=== PATIENT | female | born 1945 | race Caucasian/White ===

== ENCOUNTER 2016-11-24 20:16 | Inpatient (IN) | payer MEDICARE, OTHER ==
--- NOTE | ~2016-11-24 | HP ---
History And Physical [id number] [place]. [address] NAME: SANTINO DE LOS SANTOS : 43 STATUS : ADM IN [facility]#: [id number] AGE: 71 ADM/REG DATE : 11/24/16 MR#: [id number] REPORT SERV DATE: 11/25/16 DICTATED BY: RODRIGO CHERRY DATE: 11/25/16 REPORT STATUS : Draft TRANSCRIBED BY: CRISYT DATE: 11/25/16 DATE OF ADMISSION: 11/24/2016 REASON FOR ADMISSION: Pericardial effusion with tamponade. HISTORY OF PRESENT ILLNESS: History and physical was obtained through careful review of past medical records. The patient is currently intubated, so history and review of systems is difficult to obtain. This is a 71-year-old female, who has a history of mitral regurgitation status post mitral clip repair at [place] couple of years ago. She also has a history of aortic regurgitation status post aortic valve replacement and tricuspid valve replacement by Dr. Barney in 2012. Other medical history includes hypertension, hyperlipidemia, hypothyroidism, chronic atrial fibrillation, on Eliquis and congestive heart failure. She also has a history of anxiety, depression, restless legs syndrome, iron deficiency anemia, and tobacco abuse. She is followed by Dr. Cruz in [place]. She has been having worsening shortness of breath for several weeks and was brought in for a left and right heart catheterization yesterday. She was found to have no significant coronary artery disease, but did have moderate mitral regurgitation status post mitral clip, pulmonary hypertension, and a left ventricular ejection fraction around 40%. During the cardiac catheterization, the patient started complaining of chest pain and started showing clinical signs of cardiac tamponade. An echocardiogram was performed, but while they were waiting on the echocardiogram, the patient decompensated with a blood pressure into the 30s. She was emergently intubated and started on Levophed which did help improve her blood pressure. Echocardiogram showed a significant pericardial effusion with tamponade, so a pericardial drain was placed with evacuation of about 500 mL of blood with clots. Dr. Cruz said that after this was drained, repeat echocardiogram showed that the fluid began reaccumulating and she was again showing signs of cardiac tamponade, although stable on Levophed. Cardiothoracic Surgery was asked to admit the patient to [facility] for emergent pericardial window. The transfer plans were made and the patient arrived sometime around 7 p.m. last night. She was taken to the emergency room and ultrasound at that time showed no significant pericardial effusion and did not show any signs of tamponade. The operation was canceled and the patient was placed in the cardiovascular intensive care unit overnight where she remained intubated on low-dose Levophed. She had a CT scan of her chest done early this morning which did show a 17 mm thick posterior pericardial effusion with some signs of cardiac tamponade. Echocardiogram was ordered and reviewed by Dr. Dillard along with CT scan and we thought it would be in the patient's best interest for her to be taken to the operating room this afternoon for left video-assisted thoracoscopy with possible thoracotomy and pericardial window. The patient's family is not at bedside, but I will update them as to the plan. PAST MEDICAL HISTORY: Aortic regurgitation, status post bioprosthetic aortic valve replacement and tricuspid valve replacement in January 2013; mitral regurgitation, status post mitral clip repair in August 2014; congestive heart failure; atrial fibrillation; hypertension; hyperlipidemia; hypothyroidism; anxiety and depression; restless legs syndrome; history of tobacco abuse; upper and lower GI bleed; iron deficiency anemia; mild History And Physical [address] [address] NAME: SANTINO DE LOS SANTOS : 43 STATUS : ADM IN [facility]#: [id number] AGE: 71 ADM/REG DATE : 11/24/16 MR#: [id number] REPORT SERV DATE: 11/25/16 DICTATED BY: RODRIGO CHERRY DATE: 11/25/16 REPORT STATUS : Draft TRANSCRIBED BY: MODChel DATE: 11/25/16 bilateral carotid disease; varicose veins; obstructive sleep apnea; and COPD. PAST SURGICAL HISTORY: Aortic valve replacement, tricuspid valve replacement, mitral valve clip as above. Colonoscopy with polyps removed, endoscopy with cautery, hemorrhoidectomy, foot surgery, tubal ligation, bladder surgery, hysterectomy, and breast biopsy. FAMILY HISTORY: Significant for coronary artery disease. SOCIAL HISTORY: No alcohol or drugs. She is . Former smoker. She is retired. ALLERGIES: SHE IS ALLERGIC TO TETRACYCLINE. HOME MEDICATIONS: Aspirin 81 mg per day, Eliquis 2.5 mg twice daily, digoxin 125 mcg p.o. daily, torsemide 20-40 mg once daily and as needed, metolazone 2.5 mg once daily, potassium chloride 10 mEq twice daily, omeprazole 40 mg delayed release once daily, Colace 100 mg three times a day, diltiazem 90 mg p.o. four times a day, Seroquel 25 mg one tab p.o. at bedtime, levothyroxine 125 mcg p.o. daily, iron supplement twice daily, Dulcolax 5 mg p.o. daily as needed, magnesium 500 mg p.o. daily, fish oil 1200 mg p.o. daily, Zyrtec 10 mg p.o. daily, vitamin C 1000 mg p.o. daily, B complex vitamin daily, hydrocodone 10/325 as needed, Zoloft 100 mg p.o. daily, Spiriva 18 mcg inhaled daily, prednisone 5 mg once a day, Requip 2 mg twice daily, baclofen 10 mg three times a day, Neurontin 300 mg as needed at bedtime, selenium 100 mcg p.o. daily, vitamin A 5000 units in a.m., Ativan 1 mg q.8 hours as needed. REVIEW OF SYSTEMS: Review of systems was difficult to obtain as the patient is currently intubated. She is able to move all extremities to command and shake her head yes and no. She denies any pain or need at this time. PHYSICAL EXAMINATION: VITAL SIGNS: Today, temperature 98.9, heart rate 70, blood pressure 98/49, respiratory rate 17, O2 saturation 97%. GENERAL: Elderly appearing female, who is currently intubated and sedated. She is arousable and in no acute distress. HEENT: Head is atraumatic and normocephalic. Pupils are equal, round, and reactive to light. Ear, nose, and mouth are unremarkable. Mucous membranes are moist with poor dentition. Endotracheal tube and OG tube in place. NECK: Supple with no obvious thyromegaly or lymphadenopathy. CARDIAC: S1, S2 with no murmurs, rubs, or gallops. Pulses are present and equal bilaterally. LUNGS: Clear to auscultation bilaterally with good volumes. ABDOMEN: Soft, nontender, with active bowel sounds in all four quadrants. : Garcia catheter in place draining clear, yellow urine. EXTREMITIES: She has generalized bilateral lower extremity edema, which is nonpitting. Pedal pulses are present and equal bilaterally. No evidence of cyanosis or clubbing. NEURO: She is on Precedex but awake. She is able to follow commands and move all extremities to commands. SKIN: Warm to the touch with no evidence of rash, cyanosis, or skin break. History And Physical [address] [place]. [address] NAME: SANTINO DE LOS SANTOS : 43 STATUS : ADM IN [facility]#: [id number] AGE: 71 ADM/REG DATE : 11/24/16 MR#: [id number] REPORT SERV DATE: 11/25/16 DICTATED BY: RODRIGO CHERRY DATE: 11/25/16 REPORT STATUS : Draft TRANSCRIBED BY: CRISTY DATE: 11/25/16 LABORATORIES: White blood cell count 6.9, hemoglobin 8.4, hematocrit 25.2, platelets 81. Sodium 143, potassium 4.1, chloride 108, bicarb 24, BUN 20, creatinine 0.9, and glucose 84. PROCEDURES AND IMAGING: Left heart catheterization on 01/24/2017 at [facility] showed normal major epicardial coronary arteries, bioprosthetic aortic valve very difficult to cross without significant stenosis. The valve gradient of about 10 mmHg. There is a mitral valve with 2 mitral clips with at least moderate mitral regurgitation. Severe pulmonary hypertension. LV systolic function with EF around 40%. Portable chest x-ray on 11/24/2016 showed [id number] cardiomegaly with mild vascular congestion. CT scan with contrast on 11/25/2016 showed high density pericardial collection measuring up to 17 mm adjacent to the left ventricle most compatible with hemopericardium. There is a more dense tubular structure in the pericardial sac adjacent to the left ventricle measuring 16 x 25 x 14 mm concerning for an enhancing vascular structure such as an aneurysmal bypass graft, although retention of contrast would not be abnormal. Status post aortic and tricuspid valve replacement with metallic appliances also in the region of the mitral valve. Taypklvb-le-ytkwse cardiomegaly with prominent right atrial enlargement. Dense bilateral lobe atelectasis, left greater than right with small bilateral pleural effusions. Endotracheal drain, NG tubes, and pericardial drain in place. Urinalysis bland. ASSESSMENT AND PLAN: This is a 71-year-old female with a significant past medical history, including a valvular dysfunction status post mitral valve clip and aortic valve replacement and tricuspid valve replacement. She has been having ongoing shortness of breath and was brought in for a left heart catheterization yesterday which showed no significant coronary artery disease but did show some moderate mitral regurgitation. She began decompensating during her catheterization and showing signs of cardiac tamponade. Echocardiogram confirmed a pericardial effusion with tamponade. Pericardial drain was placed which drained out about 500 mL of blood. Fluid began reaccumulating around heart. The patient was transferred here for emergent pericardial window. Upon being taken to the OR, she had no clinical signs of cardiac tamponade and there was no significant pericardial effusion. CT scan taken this morning showed that she does have a posterior pericardial effusion with some signs of cardiac tamponade. Echocardiogram this morning confirmed this. She remains on low-dose Levophed and Precedex, is arousable and appears neurologically intact. She will be taken to the operating room this afternoon for pericardial window which will be done via left video- assisted thoracoscopy with possible thoracotomy. MIKKI/CRISTY Rodrigo Cherry NP / [id number] CC: History And Physical [address] [address] NAME: SANTINO DE LOS SANTOS : 43 STATUS : ADM IN [facility]#: [id number] AGE: 71 ADM/REG DATE : 11/24/16 MR#: [id number] REPORT SERV DATE: 11/25/16 DICTATED BY: RODRIGO CHERRY DATE: 11/25/16 REPORT STATUS : Draft TRANSCRIBED BY: CRISTY DATE: 11/25/16 Live Dillard MD
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
--- NOTE | ~2016-11-24 | DS ---
Discharge Summary [facility] [address] [place]. [address] NAME: SANTINO DE LOS SANTOS : 43 STATUS : DIS IN PAT#: [id number] AGE: 71 ADM/REG DATE : 11/24/16 MR#: [id number] REPORT SERV DATE: 12/13/16 DICTATED BY: LIVE MARVIN DATE: 12/12/16 REPORT STATUS : Draft TRANSCRIBED BY: CRISTY DATE: 12/12/16 Data Collection from hospitalization DISCHARGE DIAGNOSES: 1. Pericardial effusion. 2. Left ventricular perforation. 3. Atrial fibrillation/bradycardia. 4. Generalized weakness/failure to thrive. 5. Mitral valve regurgitation. 6. Hypertension. 7. Congestive heart failure. 8. Hyperlipidemia. 9. Hypothyroidism. 10.Anxiety and depression. 11.Restless legs syndrome. 12.History of tobacco abuse. 13.Iron-deficiency anemia. 14.Mild bilateral carotid disease. 15.Varicose veins. 16.Obstructive sleep apnea. 17.Chronic obstructive pulmonary disease. CONSULTATIONS: Dr. Marika Wilhelm and Dr. Tosha Hoyt. PROCEDURES PERFORMED: 1. Left VATS with left posterolateral thoracotomy, repair of left ventricular perforation, drainage of cardiac tamponade, 11/25/2016. 2. CT scan of the chest with contrast, 11/24/2016. PATHOLOGY: ( ) DISCHARGE MEDICATIONS: Vitamin C 1000 mg daily; Cordarone 200 mg at 9 a.m.; guaifenesin 600 mg as needed; Synthroid 125 mcg daily; multivitamins one tablet daily; Super B Complex one tablet daily; Lopressor 12.5 mg at 9 a.m.; Prilosec 20 mg twice a day; MiraLAX powder one packet daily; K-Tabs 10 mEq daily; Seroquel 25-50 mg at bedtime; Requip 2 mg twice a day; Zoloft 100 mg daily; Demadex 20 mg daily; Deltasone 10 mg with breakfast and supper as instructed, then 7.5 mg with breakfast and supper as instructed, then 5 mg with breakfast and supper as instructed, then 5 mg with breakfast as instructed; Proventil 3 mL via inhaler every six hours as instructed; [place] 5-10 mg every six hours as needed; Lioresal 10 mg three times a day as needed; Incruse Ellipta one puff via inhaler daily; Ativan 1 mg every 12 hours as needed, Neurontin 300 mg four times a day as needed; Flonase nasal spray one spray nasally twice a day; Spiriva one capsule via inhaler daily; FiberCon one tablet daily; fish oil 1200 mg daily; Caltrate 600 mg daily; vitamin A 8000 units daily; Mag-Ox 400 mg daily; ferrous sulfate 325 mg twice a day. CONDITION AT DISCHARGE: Stable. DISPOSITION: The patient was discharged to [facility] on a regular diet with Discharge Summary [place] [id number] [place]. [address] NAME: SANTINO DE LOS SANTOS : 43 STATUS : DIS IN [facility]#: [id number] AGE: 71 ADM/REG DATE : 11/24/16 MR#: [id number] REPORT SERV DATE: 12/13/16 DICTATED BY: LIVE MARVIN DATE: 12/12/16 REPORT STATUS : Draft TRANSCRIBED BY: CRISTY DATE: 12/12/16 activities as instructed. She would follow up with Dr. Delvalle, 12/27/2016 and would follow up with , 12/20/2016. HOSPITAL COURSE: This is a 71-year-old female, who has a history of mitral regurgitation and is status post mitral clip repair at [place] a couple of years ago. She had also had a history of aortic regurgitation followed by aortic valve replacement and tricuspid valve replacement in 2012. Under medical history includes hypertension, hyperlipidemia, hypothyroidism, chronic atrial fibrillation, and congestive heart failure. She also has a history of anxiety, depression, restless legs syndrome, iron-deficiency anemia, and tobacco abuse. She is followed by Dr. Cruz in [place]. She has been having worsening shortness of breath for several weeks and was brought in for left and right heart catheterization. She was found to have no significant coronary artery disease, but did have moderate mitral regurgitation status post mitral clip, pulmonary hypertension, and left ventricular ejection fraction around 40%. During the cardiac catheterization, she began to complain of chest pain and began to have signs of cardiac tamponade. An echocardiogram was performed, but while they were waiting on the echocardiogram, the patient decompensated with a blood pressure into the 30s. She was emergently intubated and started on Levophed, which helped improve her blood pressure. Echocardiogram showed significant pericardial effusion with tamponade, so a pericardial drain was placed with evacuation of about 500 mL of blood with clots. Dr. Cruz said that after this was drained, repeat echocardiogram showed that the fluid began reaccumulating and she was again showing signs of cardiac tamponade, although she was stable on Levophed. Cardiothoracic Surgery was asked to admit the patient to [facility] for emergent pericardial window. The patient was transferred here and admitted for further evaluation and treatment. Upon admission, she was taken for a CT scan of the chest with contrast. This showed high- density pericardial collection measuring up to 17 mm. There were some signs of cardiac tamponade. It was felt that the patient would need to undergo surgical intervention. She was seen in consultation by Dr. Marika Wilhelm regarding ventilator management in the setting of cardiac ventricular bleed. We have been asked to assist with the mechanical ventilation and hemodynamic support that evening. She had been intubated at the outside hospital. She was felt to have acute hypoxemic respiratory failure in the setting of left ventricular perforation and subsequent hemoperitoneum. We would plan to convert to a lung protective ventilation strategy. In light of her bleeding, we would try to correct any coagulopathy dissected and hold outpatient Eliquis. She would be kept intubated at this time until further treatment planning was made. She would be transfused on an as-needed basis. We were going to adjust her pressors based on her hemodynamics needs, recurrently titrating at a low rate and suspect that we would be able to wean off Levophed shortly. She would be sedated with Precedex and propofol was noted to have negative inotropic effect. We would also continue the current dopamine. Following day, she was taken to the operating room, where she underwent the above-mentioned procedure. She tolerated this well and there were no complications. Postoperatively, she was still sedated on the ventilator. She was on dobutamine. On postop day 1, her lungs were clear. Ventilator weaning was going to be performed. Magnesium and potassium supplementation were given. She was seen by Dr. Tosha Hoyt. She had been extubated earlier in the day. She had been a smoker in the past. She was not felt to be a good candidate for anticoagulation immediately. We felt that she was clinically improving. Levophed had been stopped and she was on dobutamine. She was going Discharge Summary [facility] [address] [place]. [address] NAME: SANTINO DE LOS SANTOS : 43 STATUS : DIS IN PAT#: [id number] AGE: 71 ADM/REG DATE : 11/24/16 MR#: [id number] REPORT SERV DATE: 12/13/16 DICTATED BY: LIVE MARVIN DATE: 12/12/16 REPORT STATUS : Draft TRANSCRIBED BY: CRISTY DATE: 12/12/16 to be placed on oral amiodarone and we could always start her on intravenous amiodarone as needed. On the , white count was 10.3. She had adequate urine output. Chest x-ray showed basilar atelectasis. Her wounds were clean, dry, and intact. She had no chest pain. She said she had not slept well. Aspirin was held. Beta-charlotte was on hold due to decreased blood pressure. On the , she had had no issues overnight. She was weak. It took two people to assist with most of her activities. Her drain was going to be removed. She was evaluated by Physical Therapy. On the , she was still very weak. It was felt that she would likely need penitentiary facility placement. She had rhonchi in both lungs. Postoperative hypotension had resolved. She had a weak cough, but it was more productive. Discharge planning was performed. Left ventricular ejection fraction was 55%. She had had paroxysmal atrial fibrillation, but was back in a normal sinus rhythm. Amiodarone was decreased. On 12/02/2016, she said she was feeling a little better. She was trying to eat. She was in atrial fibrillation/bradycardia, which is chronic. Anticoagulation was being held for now. She did have good oral intake. Discharge instructions were given. Due to her improved and stable condition, she was discharged to [facility] [place] with the above-stated instructions. Information collected by: Beth Suarez I submit the above information as my discharge summary. KENDRA/CRISTY Live Marvin MD / [id number] CC: MD TOD Champagne JOHN S. Ondrej J Lisy, M.D. [facility]. [place]
--- NOTE | ~2016-11-24 | OP ---
Record Of Operation [facility] [address] [place]. [address] NAME: SANTINO DE LOS SANTOS : 43 STATUS : ADM IN [facility]#: [id number] AGE: 71 ADM/REG DATE : 11/24/16 MR#: [id number] REPORT SERV DATE: 11/25/16 DICTATED BY: LIVE MARVIN DATE: 11/25/16 REPORT STATUS : Draft TRANSCRIBED BY: MODL DATE: 11/25/16 DATE OF PROCEDURE: 11/25/2016 [place] MACHINE OPERATOR: Sal Herzog. ANESTHESIOLOGIST: Dr. Bonifacio Rosas. PREOPERATIVE DIAGNOSES: 1. Cardiac tamponade. 2. Iatrogenic LV perforation. 3. Prior aortic valve replacement. 4. Prior tricuspid valve replacement. 5. Prior mitral clip for mitral valve. 6. Systolic congestive heart failure. 7. Cardiogenic shock. 8. Respiratory failure. POSTOPERATIVE DIAGNOSES: 1. Cardiac tamponade. 2. Iatrogenic LV perforation. 3. Prior aortic valve replacement. 4. Prior tricuspid valve replacement. 5. Prior mitral clip for mitral valve. 6. Systolic congestive heart failure. 7. Cardiogenic shock. 8. Respiratory failure. OPERATION PROCEDURE PERFORMED: 1. Left VATS. 2. Left posterolateral thoracotomy. 3. Repair of LV perforation. 4. Drainage of cardiac tamponade. ESTIMATED BLOOD LOSS: 300 mL. SPECIMEN REMOVED: Clot. COMPLICATIONS: None. TUBES AND DRAINS: A 32-Thai x2. INDICATIONS FOR PROCEDURE: Ms. De Los Santos is a 71-year-old female, previously operated on by Dr. Justin Barney for aortic valve replacement and tricuspid valve replacement who subsequently underwent a mitral valve MitraClip procedure. She was admitted to [facility] and underwent heart catheterization. During the heart catheterization, she apparently had a guidewire perforation of her LV with subsequent cardiac tamponade. She was resuscitated, Record Of Operation [facility] [address] [place]. [address] NAME: SANTINO DE LOS SANTOS : 43 STATUS : ADM IN PAT#: [id number] AGE: 71 ADM/REG DATE : 11/24/16 MR#: [id number] REPORT SERV DATE: 11/25/16 DICTATED BY: LIVE MARVIN DATE: 11/25/16 REPORT STATUS : Draft TRANSCRIBED BY: MODL DATE: 11/25/16 intubated, had a pericardial drain placed with 520 mL out and resolution of the effusion, then she had return of the effusion. She was subsequently transferred to [facility] for definitive management. The patient was seen in the bed prior to the operation. She was taken directly to the operating room. Transesophageal echo, at that time, did not reveal a large or hemodynamically significant clot nor did it show any signs of RV or LV tamponade. She was transferred to the ICU, underwent CT scan and repeat echo the following morning, both of which showed a 1.7 cm approximately posterior fluid collection without signs of tamponade. The CT scan showed contrast within the fluid collection suggestive of contained fluid perforation. Risks, benefits, and alternatives were discussed. The patient was taken to the operating room. DETAILS OF PROCEDURE: The patient was brought to the operating room, placed supine on the operating room table. After satisfactory induction of general endotracheal anesthesia with the double-lumen ET tube, she was log rolled into right lateral decubitus position. Arm was placed on an overhead arm sling. Axillary roll was placed. Lower leg was bent. Upper leg was straight. The beanbag was aspirated and she was taped into position. A small 2.5 cm incision was made in the posterior axillary line in the 8th intercostal space. Skin and subcutaneous tissues were divided. The chest wall was divided down to the intercostal. The intercostal muscle was divided and the pleural space was entered. There was a small amount of dark blood when we first entered the pleura. Given her history of being on Eliquis up until a day and a half ago, she was transfused platelets, FFP, and PCC as well as packed red blood cells during the operation. The lung was adhesed to the pericardium. Adhesions were taken down with a combination of the electrocautery and the EnSeal and the pericardium was encountered. Hook cautery was used to open the pericardium until a suction device could be placed. There was good blood and clot encountered visually within the pericardium. This was begun to be removed manually. There was a small what looked like after pulling some of the clot off from the surface gripping along with the clot, there appeared to be a venous bleeder on the surface of the heart. Piece of Kirvin was placed on this with resolution of the bleeding. The pericardiotomy was continued superiorly behind the phrenic nerve. Two pericardial retraction stitches were placed and a large amount of clot was encountered. This clot was being manually removed with the small ring forceps and just pulling on the clot, attaching the heart after removing an approximate 4 x 4 cm x 1 cm thick piece of clot, right arterial blood was visualized and was able to visualize a 1 cm long laceration in the LV. Direct pressure was held on this and in order to attempt to temporize this, a piece of Kirvin was placed. Pressure was held. The bleeding was managed with the Kirvin and all other clot was removed. All the clot that could be easily accessed was removed using forceps. Pericardium was irrigated. The chest was irrigated. More adhesions were taken down from the lung in order to facilitate lung expanding and attention was returned to the heart of the piece of adverse was peeled off the heart and a second piece of Kirvin was placed and again held. The bleeding appeared to be controlled after discussion with my senior landscape architect Dr. Barney. It was felt that probably ought to leave well enough alone and leave the perforation contained by the Kirvin, I did not think that I could tell whether coronary anatomy was nor did I want to be the attempt to suture this as I felt that the heart was extremely fragile and friable around the area of the laceration and did not think that it would easily hold the suture material on and can turn a small laceration into a very large one. A one pericardial stitch was used to reapproximate the pericardium. A 32-Thai chest tube was placed next to the pericardial window and a 2nd 32-Thai was placed Record Of Operation [address] [place]. [address] NAME: SANTINO DE LOS SANTOS Nellie : 43 STATUS : ADM IN [facility]#: [id number] AGE: 71 ADM/REG DATE : 11/24/16 MR#: [id number] REPORT SERV DATE: 11/25/16 DICTATED BY: LIVE MAVRIN DATE: 11/25/16 REPORT STATUS : Draft TRANSCRIBED BY: CRISTY DATE: 11/25/16 posteriorly. Procedure was then terminated. The lung was expanded. The chest was closed. The posterolateral thoracotomy was closed. The intercostals were closed using 4 figure-of- eight Vicryls, #2 Vicryls, the serratus layer was reapproximated using running #1 StrataFix. The latissimus layer was reapproximated using running #1 StrataFix. Skin and subcutaneous tissues was closed using 2-0 Vicryl and 4-0 Monocryl. Dry sterile dressings were placed. The patient was transferred to the CVICU in critical stable condition. WMC/MODL Live Marvin MD / [id number] CC: Lvie Marvin MD
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
[2016-11-24 20:13] LABS: BE (BASE EXCESS) -0.8 MEQ/L (0 +/- 2.5); CARBOXYHEMOGLOBIN 0.2 % (0-3); HCO3 (ACTUAL BICARBONATE) 23.1 MEQ/L (23-27); HEMOBLOGIN CONTENT 10.3 G/DL (12-16); INSTRUMENT SERIAL # 11843; METHEMOGLOBIN 0.5 % (0-3); MODE SIMV; O2 CONTENT 15.3 VOL% (18-24); PCO2 (CO2 TENSION) 35 MMHG (35-45); PO2 (O2 TENSION) 385 MMHG (79-93); SAMPLE Arterial; TIDAL VOLUME 500 ML; pH 7.43 (7.37-7.43)
[~2016-11-24 20:16] MED LIST: ATV1 PO; C5 PO; CALCIUM/D; CARD60 PO; COLON CARE; DIGITEK0.125 MG PO; FISH OIL; K-TABS10 MEQ PO; L40 PO; LEVOTHROID50 MCG PO; LOP25 PO; LOP50 PO; LORTAB 5 PO; MAGNESIUM OTC; REQUIP1 PO; SOMATAB PO; SPIRO25 PO; TRAZ100 PO; VIT B COMPLEX; VIT C; VITC500 PO; ZOL100 PO
[2016-11-24 21:16] LABS: BASOPHILS 0.1 %; BASOPHILS ABSOLUTE 0.01 10/3/uL (0.0-0.16); EOSINOPHILS 2.4 %; EOSINOPHILS ABSOLUTE 0.25 10/3/uL (0.0-0.53); HEMOGLOBIN 9.2 g/dL (12.0-16.0); IMMATURE GRANULOCYTES 0.5 %; IMMATURE GRANULOCYTES ABSOLUTE 0.05 10/3/uL (0.0-0.11); LYMPHOCYTES 13.7 %; LYMPHOCYTES ABSOLUTE 1.42 10/3/uL (0.67-4.30); MEAN CORPUS HGB CONC 32.3 g/dL (32.0-36.0); MEAN CORPUSCULAR HEMOGLOB 30.3 pg (26.0-34.0); MEAN PLATELET VOLUME 9.5 fL (9.2-13.0); MONOCYTES 8.5 %; MONOCYTES ABSOLUTE 0.88 10/3/uL (0.21-1.20); NEUTROPHILS 74.8 %; NEUTROPHILS ABSOLUTE 7.76 10/3/uL (2.02-8.40); RBC DISTRIBUTION WIDTH 14.1 % (12.0-16.0); RED CELL COUNT 3.04 10/6/uL (4.0-5.6); WHITE BLOOD CELLS 10.4 10/3/uL (4.5-10.5)
[2016-11-24 21:17] LABS: HEMATOCRIT 28.5 % (36.0-48.0); MANUAL DIFF NO %; MEAN CORPUSCULAR VOLUME 93.8 fL (80-100); PLATELET COUNT 121 10/3/uL (150-400)
[2016-11-24 21:25] LABS: INTERNATIONAL NORMAL RATI 1.2 UNITS (-); PARTIAL THROMBO TIME 31.3 SEC (22.5-37.2)
[2016-11-24 21:30] LABS: CALCIUM, SERUM 7.6 MG/DL (8.5-10.4); CHLORIDE, SERUM 110 MMOL/L (96-112); CO2 (CARBON DIOXIDE) 25 MMOL/L (24-34); CREATININE 1.02 MG/DL (0.55-1.02); GFR AFRICAN AMERICAN 64 ML/MIN (>=60); GFR NON AFRICAN AMERICAN 55 ML/MIN (>=60); POTASSIUM, SERUM 3.7 MMOL/L (3.5-5.3); SGOT(AST) 76 U/L (5-40); SGPT(ALT) 59 U/L (5-65); TOTAL PROTEIN 5.4 G/DL (6.0-8.5)
[2016-11-24 21:31] LABS: ALBUMIN 2.7 G/DL (3.5-5.0); ALKALINE PHOSPHATASE 52 U/L (45-117); BUN (BLOOD UREA NITROGEN) 26 MG/DL (6-23); GLOBULIN 2.7 G/DL (2.5-4.1); GLUCOSE, SERUM 142 MG/DL (60-99); SODIUM, SERUM 144 MMOL/L (135-148); TOTAL BILIRUBIN 0.5 MG/DL (0-1.2)
[2016-11-24 22:47] LABS: FIBRINOGEN 300 MG/DL (230-462)
[2016-11-25 00:23] LABS: INTERNATIONAL NORMAL RATI 1.1 UNITS (-); PARTIAL THROMBO TIME 29.3 SEC (22.5-37.2); PROTIME (NOT ORD) 14.4 SEC (12.0-14.5)
[2016-11-25 01:05] LABS: BASOPHILS 0.1 %; BASOPHILS ABSOLUTE 0.01 10/3/uL (0.0-0.16); EOSINOPHILS 2.6 %; EOSINOPHILS ABSOLUTE 0.18 10/3/uL (0.0-0.53); HEMOGLOBIN 8.5 g/dL (12.0-16.0); IMMATURE GRANULOCYTES 0.1 %; IMMATURE GRANULOCYTES ABSOLUTE 0.01 10/3/uL (0.0-0.11); LYMPHOCYTES 11.9 %; LYMPHOCYTES ABSOLUTE 0.82 10/3/uL (0.67-4.30); MEAN CORPUS HGB CONC 33.6 g/dL (32.0-36.0); MEAN CORPUSCULAR HEMOGLOB 31.6 pg (26.0-34.0); MEAN CORPUSCULAR VOLUME 94.1 fL (80-100); MEAN PLATELET VOLUME 9.2 fL (9.2-13.0); MONOCYTES 6.8 %; MONOCYTES ABSOLUTE 0.47 10/3/uL (0.21-1.20); NEUTROPHILS 78.5 %; NEUTROPHILS ABSOLUTE 5.39 10/3/uL (2.02-8.40); RBC DISTRIBUTION WIDTH 14.1 % (12.0-16.0); RED CELL COUNT 2.69 10/6/uL (4.0-5.6); WHITE BLOOD CELLS 6.9 10/3/uL (4.5-10.5)
[2016-11-25 01:06] LABS: HEMATOCRIT 25.3 % (36.0-48.0); MANUAL DIFF NO %; PLATELET COUNT 79 10/3/uL (150-400)
[2016-11-25 01:16] LABS: BUN (BLOOD UREA NITROGEN) 23 MG/DL (6-23); CALCIUM, SERUM 7.7 MG/DL (8.5-10.4); CHLORIDE, SERUM 107 MMOL/L (96-112); CO2 (CARBON DIOXIDE) 28 MMOL/L (24-34); CREATININE 0.97 MG/DL (0.55-1.02); GFR AFRICAN AMERICAN 68 ML/MIN (>=60); GFR NON AFRICAN AMERICAN 58 ML/MIN (>=60); GLUCOSE, SERUM 141 MG/DL (60-99); POTASSIUM, SERUM 3.5 MMOL/L (3.5-5.3); SODIUM, SERUM 143 MMOL/L (135-148)
[2016-11-25 02:01] LABS: PLATELET ESTIMATE SLT DEC (ADEQUATE)
[2016-11-25 02:23] LABS: ASCORBIC ACID (UR NOT ORDER) NEG (NEG); BILIRUBIN, URINE NEGATIVE (NEG); KETONE, URINE NEGATIVE (NEG); LEUKOCYTE ESTERASE(NOT OR NEG (NEG); WBC (NOT ORDERED) (RFLEX) 1 (0-5)
[2016-11-25 04:14] LABS: BASOPHILS 0.1 %; BASOPHILS ABSOLUTE 0.01 10/3/uL (0.0-0.16); EOSINOPHILS 4.2 %; EOSINOPHILS ABSOLUTE 0.29 10/3/uL (0.0-0.53); HEMATOCRIT 25.2 % (36.0-48.0); HEMOGLOBIN 8.4 g/dL (12.0-16.0); IMMATURE GRANULOCYTES 0.1 %; IMMATURE GRANULOCYTES ABSOLUTE 0.01 10/3/uL (0.0-0.11); LYMPHOCYTES 15.9 %; LYMPHOCYTES ABSOLUTE 1.09 10/3/uL (0.67-4.30); MEAN CORPUS HGB CONC 33.3 g/dL (32.0-36.0); MEAN CORPUSCULAR HEMOGLOB 31.3 pg (26.0-34.0); MEAN PLATELET VOLUME 9.1 fL (9.2-13.0); MONOCYTES 8.2 %; MONOCYTES ABSOLUTE 0.56 10/3/uL (0.21-1.20); NEUTROPHILS 71.5 %; PLATELET COUNT 81 10/3/uL (150-400); RBC DISTRIBUTION WIDTH 14.3 % (12.0-16.0); RED CELL COUNT 2.68 10/6/uL (4.0-5.6); WHITE BLOOD CELLS 6.9 10/3/uL (4.5-10.5)
[2016-11-25 04:15] LABS: MANUAL DIFF NO %
[2016-11-25 04:20] LABS: INTERNATIONAL NORMAL RATI 1.1 UNITS (-); PARTIAL THROMBO TIME 28.7 SEC (22.5-37.2); PROTIME (NOT ORD) 14.4 SEC (12.0-14.5)
[2016-11-25 04:29] LABS: BUN (BLOOD UREA NITROGEN) 20 MG/DL (6-23); CALCIUM, SERUM 7.6 MG/DL (8.5-10.4); CHLORIDE, SERUM 108 MMOL/L (96-112); CO2 (CARBON DIOXIDE) 24 MMOL/L (24-34); CREATININE 0.94 MG/DL (0.55-1.02); GFR AFRICAN AMERICAN 70 ML/MIN (>=60); GFR NON AFRICAN AMERICAN 61 ML/MIN (>=60); GLUCOSE, SERUM 84 MG/DL (60-99); POTASSIUM, SERUM 4.1 MMOL/L (3.5-5.3); SODIUM, SERUM 143 MMOL/L (135-148)
[2016-11-25] MEDS ORDERED: PREDNISONE (16:04)
[2016-11-25] MEDS ORDERED: SYN125 PO (16:04)
[2016-11-25] MEDS ORDERED: *UNABLE2 (16:05)
[2016-11-25] MEDS ORDERED: LAN125 PO (16:06)
[2016-11-25] MEDS ORDERED: CEFT5 PO (16:06)
[2016-11-25] MEDS ORDERED: NORCO1 TAB PO (16:06)
[2016-11-25] MEDS ORDERED: LIOR10 PO (16:07)
[2016-11-25] MEDS ORDERED: ZOL100 PO (16:07)
[2016-11-25] MEDS ORDERED: REQUIP2 PO (16:07)
[2016-11-25] MEDS ORDERED: ELIQUIS 2.5 MG2.5 MG PO (16:08)
[2016-11-25] MEDS ORDERED: INCRUSE ELLI62.5 MCG INH (16:08)
[2016-11-25] MEDS ORDERED: K-TABS10 MEQ PO (16:08)
[2016-11-25] MEDS ORDERED: ATV1 PO (16:09)
[2016-11-25] MEDS ORDERED: DEMA20 PO (16:09)
[2016-11-25] MEDS ORDERED: NEUR300 PO (16:10)
[2016-11-25] MEDS ORDERED: SEROQUEL25 PO (16:10)
[2016-11-25] MEDS ORDERED: CARD90 PO (16:11)
[2016-11-25] MEDS ORDERED: TESSALON (16:12)
[2016-11-25 16:57] LABS: BE (BASE EXCESS) 0.7 MEQ/L (0 +/- 2.5); CARBOXYHEMOGLOBIN 0.3 % (0-3); HEMOBLOGIN CONTENT 7.8 G/DL (12-16); INSTRUMENT SERIAL # 11843; METHEMOGLOBIN 0.8 % (0-3); MODE CMV; O2 CONTENT 11.5 VOL% (18-24); OPERATOR ID 13715; PCO2 (CO2 TENSION) 45 MMHG (35-45); PO2 (O2 TENSION) 301 MMHG (79-93); SAMPLE Arterial; TIDAL VOLUME 400 ML; pH 7.38 (7.37-7.43)
[2016-11-25 18:18] LABS: BASOPHILS 0 %; EOSINOPHILS 4.3 %; EOSINOPHILS ABSOLUTE 0.28 10/3/uL (0.0-0.53); HEMOGLOBIN 7.4 g/dL (12.0-16.0); IMMATURE GRANULOCYTES 0.2 %; IMMATURE GRANULOCYTES ABSOLUTE 0.01 10/3/uL (0.0-0.11); LYMPHOCYTES ABSOLUTE 0.52 10/3/uL (0.67-4.30); MEAN CORPUS HGB CONC 33.3 g/dL (32.0-36.0); MEAN CORPUSCULAR HEMOGLOB 31.2 pg (26.0-34.0); MEAN CORPUSCULAR VOLUME 93.7 fL (80-100); MEAN PLATELET VOLUME 9.6 fL (9.2-13.0); MONOCYTES 7.7 %; NEUTROPHILS 79.8 %; NEUTROPHILS ABSOLUTE 5.18 10/3/uL (2.02-8.40); PLATELET COUNT 97 10/3/uL (150-400); RBC DISTRIBUTION WIDTH 15.3 % (12.0-16.0); RED CELL COUNT 2.37 10/6/uL (4.0-5.6); WHITE BLOOD CELLS 6.5 10/3/uL (4.5-10.5)
[2016-11-25 18:19] LABS: HEMATOCRIT 22.2 % (36.0-48.0); MANUAL DIFF NO %
[2016-11-25 18:31] LABS: BUN (BLOOD UREA NITROGEN) 14 MG/DL (6-23); CALCIUM, SERUM 7.2 MG/DL (8.5-10.4); CHLORIDE, SERUM 111 MMOL/L (96-112); CO2 (CARBON DIOXIDE) 27 MMOL/L (24-34); CREATININE 0.92 MG/DL (0.55-1.02); GFR AFRICAN AMERICAN 72 ML/MIN (>=60); GFR NON AFRICAN AMERICAN 62 ML/MIN (>=60); GLUCOSE, SERUM 132 MG/DL (60-99); POTASSIUM, SERUM 3.6 MMOL/L (3.5-5.3); SODIUM, SERUM 147 MMOL/L (135-148)
[2016-11-25 21:43] LABS: BASOPHILS 0 %; EOSINOPHILS 2.2 %; EOSINOPHILS ABSOLUTE 0.18 10/3/uL (0.0-0.53); HEMATOCRIT 22.9 % (36.0-48.0); HEMOGLOBIN 7.6 g/dL (12.0-16.0); IMMATURE GRANULOCYTES 0.2 %; IMMATURE GRANULOCYTES ABSOLUTE 0.02 10/3/uL (0.0-0.11); LYMPHOCYTES 5.9 %; LYMPHOCYTES ABSOLUTE 0.48 10/3/uL (0.67-4.30); MEAN CORPUS HGB CONC 33.2 g/dL (32.0-36.0); MEAN CORPUSCULAR VOLUME 93.5 fL (80-100); MEAN PLATELET VOLUME 9.2 fL (9.2-13.0); MONOCYTES 8.3 %; MONOCYTES ABSOLUTE 0.68 10/3/uL (0.21-1.20); NEUTROPHILS 83.4 %; NEUTROPHILS ABSOLUTE 6.81 10/3/uL (2.02-8.40); PLATELET COUNT 95 10/3/uL (150-400); RBC DISTRIBUTION WIDTH 15.4 % (12.0-16.0); RED CELL COUNT 2.45 10/6/uL (4.0-5.6); WHITE BLOOD CELLS 8.2 10/3/uL (4.5-10.5)
[2016-11-25 21:47] LABS: MANUAL DIFF NO %
[2016-11-25 21:50] LABS: INTERNATIONAL NORMAL RATI 1.2 UNITS (-); PARTIAL THROMBO TIME 31.2 SEC (22.5-37.2); PROTIME (NOT ORD) 14.9 SEC (12.0-14.5)
[2016-11-25 21:55] LABS: BUN (BLOOD UREA NITROGEN) 13 MG/DL (6-23); CALCIUM, SERUM 7.8 MG/DL (8.5-10.4); CHLORIDE, SERUM 112 MMOL/L (96-112); CO2 (CARBON DIOXIDE) 26 MMOL/L (24-34); CREATININE 0.95 MG/DL (0.55-1.02); GFR AFRICAN AMERICAN 69 ML/MIN (>=60); GFR NON AFRICAN AMERICAN 60 ML/MIN (>=60); GLUCOSE, SERUM 144 MG/DL (60-99); SODIUM, SERUM 145 MMOL/L (135-148)
[2016-11-25 21:56] LABS: POTASSIUM, SERUM 4.4 MMOL/L (3.5-5.3)
[2016-11-26 02:39] LABS: BASOPHILS 0 %; EOSINOPHILS 4.3 %; EOSINOPHILS ABSOLUTE 0.34 10/3/uL (0.0-0.53); HEMATOCRIT 23.4 % (36.0-48.0); HEMOGLOBIN 7.7 g/dL (12.0-16.0); IMMATURE GRANULOCYTES 0.3 %; IMMATURE GRANULOCYTES ABSOLUTE 0.02 10/3/uL (0.0-0.11); LYMPHOCYTES 7.7 %; LYMPHOCYTES ABSOLUTE 0.61 10/3/uL (0.67-4.30); MANUAL DIFF NO %; MEAN CORPUS HGB CONC 32.9 g/dL (32.0-36.0); MEAN CORPUSCULAR HEMOGLOB 30.7 pg (26.0-34.0); MEAN CORPUSCULAR VOLUME 93.2 fL (80-100); MEAN PLATELET VOLUME 9.5 fL (9.2-13.0); MONOCYTES 7.5 %; MONOCYTES ABSOLUTE 0.59 10/3/uL (0.21-1.20); NEUTROPHILS 80.2 %; NEUTROPHILS ABSOLUTE 6.35 10/3/uL (2.02-8.40); PLATELET COUNT 93 10/3/uL (150-400); RBC DISTRIBUTION WIDTH 15.6 % (12.0-16.0); RED CELL COUNT 2.51 10/6/uL (4.0-5.6); WHITE BLOOD CELLS 7.9 10/3/uL (4.5-10.5)
[2016-11-26 02:48] LABS: INTERNATIONAL NORMAL RATI 1.2 UNITS (-); PARTIAL THROMBO TIME 32.5 SEC (22.5-37.2); PROTIME (NOT ORD) 15.4 SEC (12.0-14.5)
[2016-11-26 02:51] LABS: BUN (BLOOD UREA NITROGEN) 11 MG/DL (6-23); CALCIUM, SERUM 7.7 MG/DL (8.5-10.4); CHLORIDE, SERUM 112 MMOL/L (96-112); CO2 (CARBON DIOXIDE) 26 MMOL/L (24-34); CREATININE 0.92 MG/DL (0.55-1.02); GFR AFRICAN AMERICAN 72 ML/MIN (>=60); GFR NON AFRICAN AMERICAN 62 ML/MIN (>=60); GLUCOSE, SERUM 142 MG/DL (60-99); SODIUM, SERUM 146 MMOL/L (135-148)
[2016-11-26 11:49] LABS: HEMATOCRIT 23.1 % (36.0-48.0); HEMOGLOBIN 7.8 g/dL (12.0-16.0)
[2016-11-26 12:32] LABS: BE (BASE EXCESS) 0.6 MEQ/L (0 +/- 2.5); DEVICE NC; HEMOBLOGIN CONTENT 8.4 G/DL (12-16); INSTRUMENT SERIAL # 11843; METHEMOGLOBIN 0.5 % (0-3); O2 CONTENT 11.5 VOL% (18-24); OPERATOR ID 18642; PCO2 (CO2 TENSION) 40 MMHG (35-45); PO2 (O2 TENSION) 91 MMHG (79-93); SAMPLE Arterial; pH 7.42 (7.37-7.43)
[2016-11-26 18:48] LABS: POTASSIUM, SERUM 4.2 MMOL/L (3.5-5.3)
[2016-11-26 22:52] LABS: BASOPHILS 0.1 %; BASOPHILS ABSOLUTE 0.01 10/3/uL (0.0-0.16); EOSINOPHILS 4.4 %; EOSINOPHILS ABSOLUTE 0.44 10/3/uL (0.0-0.53); HEMOGLOBIN 8.8 g/dL (12.0-16.0); IMMATURE GRANULOCYTES 0.2 %; IMMATURE GRANULOCYTES ABSOLUTE 0.02 10/3/uL (0.0-0.11); LYMPHOCYTES ABSOLUTE 0.79 10/3/uL (0.67-4.30); MEAN CORPUS HGB CONC 33.1 g/dL (32.0-36.0); MEAN CORPUSCULAR HEMOGLOB 30.8 pg (26.0-34.0); MEAN PLATELET VOLUME 9.7 fL (9.2-13.0); MONOCYTES 7.4 %; MONOCYTES ABSOLUTE 0.73 10/3/uL (0.21-1.20); NEUTROPHILS 79.9 %; PLATELET COUNT 108 10/3/uL (150-400); RBC DISTRIBUTION WIDTH 15.8 % (12.0-16.0); RED CELL COUNT 2.86 10/6/uL (4.0-5.6); WHITE BLOOD CELLS 9.9 10/3/uL (4.5-10.5)
[2016-11-26 22:56] LABS: HEMATOCRIT 26.6 % (36.0-48.0); MANUAL DIFF NO %
[2016-11-26 23:04] LABS: BUN (BLOOD UREA NITROGEN) 10 MG/DL (6-23); CALCIUM, SERUM 8.1 MG/DL (8.5-10.4); CHLORIDE, SERUM 106 MMOL/L (96-112); CO2 (CARBON DIOXIDE) 28 MMOL/L (24-34); CREATININE 0.89 MG/DL (0.55-1.02); GFR AFRICAN AMERICAN 75 ML/MIN (>=60); GFR NON AFRICAN AMERICAN 65 ML/MIN (>=60); GLUCOSE, SERUM 144 MG/DL (60-99); POTASSIUM, SERUM 4.1 MMOL/L (3.5-5.3); SODIUM, SERUM 142 MMOL/L (135-148)
[2016-11-27 03:43] LABS: BASOPHILS 0.1 %; BASOPHILS ABSOLUTE 0.01 10/3/uL (0.0-0.16); EOSINOPHILS 4.4 %; EOSINOPHILS ABSOLUTE 0.45 10/3/uL (0.0-0.53); HEMATOCRIT 25.1 % (36.0-48.0); HEMOGLOBIN 8.2 g/dL (12.0-16.0); IMMATURE GRANULOCYTES 0.3 %; IMMATURE GRANULOCYTES ABSOLUTE 0.03 10/3/uL (0.0-0.11); LYMPHOCYTES 4.4 %; LYMPHOCYTES ABSOLUTE 0.45 10/3/uL (0.67-4.30); MEAN CORPUS HGB CONC 32.7 g/dL (32.0-36.0); MEAN CORPUSCULAR HEMOGLOB 30.6 pg (26.0-34.0); MEAN CORPUSCULAR VOLUME 93.7 fL (80-100); MEAN PLATELET VOLUME 9.9 fL (9.2-13.0); MONOCYTES 7.4 %; MONOCYTES ABSOLUTE 0.76 10/3/uL (0.21-1.20); NEUTROPHILS 83.4 %; NEUTROPHILS ABSOLUTE 8.56 10/3/uL (2.02-8.40); PLATELET COUNT 102 10/3/uL (150-400); RED CELL COUNT 2.68 10/6/uL (4.0-5.6); WHITE BLOOD CELLS 10.3 10/3/uL (4.5-10.5)
[2016-11-27 03:45] LABS: MANUAL DIFF NO %
[2016-11-27 03:53] LABS: BUN (BLOOD UREA NITROGEN) 11 MG/DL (6-23); CALCIUM, SERUM 7.9 MG/DL (8.5-10.4); CHLORIDE, SERUM 106 MMOL/L (96-112); CO2 (CARBON DIOXIDE) 26 MMOL/L (24-34); CREATININE 0.85 MG/DL (0.55-1.02); GFR AFRICAN AMERICAN 79 ML/MIN (>=60); GFR NON AFRICAN AMERICAN 68 ML/MIN (>=60); GLUCOSE, SERUM 127 MG/DL (60-99); POTASSIUM, SERUM 4.1 MMOL/L (3.5-5.3); SODIUM, SERUM 142 MMOL/L (135-148)
[2016-11-27 11:30] LABS: INTERNATIONAL NORMAL RATI 1.2 UNITS (-); PARTIAL THROMBO TIME 32.8 SEC (22.5-37.2); PROTIME (NOT ORD) 15.1 SEC (12.0-14.5)
[2016-11-27] MEDS ORDERED: FLONASE NAS (14:32)
[2016-11-27] MEDS ORDERED: PRILO PO (14:34)
[2016-11-27] MEDS ORDERED: SPIRIVA INH (14:34)
[2016-11-27] MEDS ORDERED: MULTIVITAMI1 PO (14:36)
[2016-11-27] MEDS ORDERED: FIBERCON PO (14:37)
[2016-11-27] MEDS ORDERED: ASAB PO (14:37)
[2016-11-27] MEDS ORDERED: FISH OIL1200 MG PO (14:38)
[2016-11-27] MEDS ORDERED: VITC500 PO (14:38)
[2016-11-27] MEDS ORDERED: CALTRAT600 PO (14:39)
[2016-11-27] MEDS ORDERED: SUPER B COMP PO (14:39)
[2016-11-27] MEDS ORDERED: FERROUS SULF325 M1 PO (14:40)
[2016-11-27] MEDS ORDERED: VITAMIN A8000 UNIT PO (14:40)
[2016-11-27] MEDS ORDERED: MAGOX4 PO (14:40)
[2016-11-28 04:32] LABS: BASOPHILS 0.1 %; BASOPHILS ABSOLUTE 0.01 10/3/uL (0.0-0.16); EOSINOPHILS 4.2 %; EOSINOPHILS ABSOLUTE 0.38 10/3/uL (0.0-0.53); HEMATOCRIT 26.1 % (36.0-48.0); HEMOGLOBIN 8.7 g/dL (12.0-16.0); IMMATURE GRANULOCYTES 0.3 %; IMMATURE GRANULOCYTES ABSOLUTE 0.03 10/3/uL (0.0-0.11); LYMPHOCYTES 7.9 %; LYMPHOCYTES ABSOLUTE 0.72 10/3/uL (0.67-4.30); MEAN CORPUS HGB CONC 33.3 g/dL (32.0-36.0); MEAN CORPUSCULAR HEMOGLOB 31.3 pg (26.0-34.0); MEAN CORPUSCULAR VOLUME 93.9 fL (80-100); MEAN PLATELET VOLUME 9.8 fL (9.2-13.0); MONOCYTES 7.5 %; MONOCYTES ABSOLUTE 0.69 10/3/uL (0.21-1.20); NEUTROPHILS ABSOLUTE 7.31 10/3/uL (2.02-8.40); PLATELET COUNT 108 10/3/uL (150-400); RBC DISTRIBUTION WIDTH 15.4 % (12.0-16.0); RED CELL COUNT 2.78 10/6/uL (4.0-5.6); WHITE BLOOD CELLS 9.1 10/3/uL (4.5-10.5)
[2016-11-28 04:33] LABS: MANUAL DIFF NO %
[2016-11-28 04:45] LABS: ALBUMIN 2.7 G/DL (3.5-5.0); BUN (BLOOD UREA NITROGEN) 14 MG/DL (6-23); CALCIUM, SERUM 8.3 MG/DL (8.5-10.4); CHLORIDE, SERUM 105 MMOL/L (96-112); CO2 (CARBON DIOXIDE) 24 MMOL/L (24-34); CREATININE 0.84 MG/DL (0.55-1.02); GFR AFRICAN AMERICAN 80 ML/MIN (>=60); GFR NON AFRICAN AMERICAN 69 ML/MIN (>=60); PHOSPHORUS, SERUM 2.3 MG/DL (2.5-4.5); POTASSIUM, SERUM 3.9 MMOL/L (3.5-5.3); SODIUM, SERUM 140 MMOL/L (135-148)
[2016-11-28 04:49] LABS: GLUCOSE, SERUM 101 MG/DL (60-99)
[2016-11-30 04:25] LABS: BASOPHILS 0.3 %; BASOPHILS ABSOLUTE 0.02 10/3/uL (0.0-0.16); EOSINOPHILS 11.6 %; EOSINOPHILS ABSOLUTE 0.84 10/3/uL (0.0-0.53); HEMATOCRIT 27.9 % (36.0-48.0); IMMATURE GRANULOCYTES 0.8 %; IMMATURE GRANULOCYTES ABSOLUTE 0.06 10/3/uL (0.0-0.11); LYMPHOCYTES 16.1 %; LYMPHOCYTES ABSOLUTE 1.16 10/3/uL (0.67-4.30); MANUAL DIFF NO %; MEAN CORPUS HGB CONC 32.3 g/dL (32.0-36.0); MEAN CORPUSCULAR HEMOGLOB 30.9 pg (26.0-34.0); MEAN CORPUSCULAR VOLUME 95.9 fL (80-100); MEAN PLATELET VOLUME 9.7 fL (9.2-13.0); MONOCYTES 7.2 %; MONOCYTES ABSOLUTE 0.52 10/3/uL (0.21-1.20); NEUTROPHILS ABSOLUTE 4.62 10/3/uL (2.02-8.40); PLATELET COUNT 160 10/3/uL (150-400); RED CELL COUNT 2.91 10/6/uL (4.0-5.6); WHITE BLOOD CELLS 7.2 10/3/uL (4.5-10.5)
[2016-11-30 04:37] LABS: CALCIUM, SERUM 8.3 MG/DL (8.5-10.4); CHLORIDE, SERUM 103 MMOL/L (96-112); CO2 (CARBON DIOXIDE) 28 MMOL/L (24-34); CREATININE 1.11 MG/DL (0.55-1.02); GFR AFRICAN AMERICAN 57 ML/MIN (>=60); GFR NON AFRICAN AMERICAN 50 ML/MIN (>=60); GLUCOSE, SERUM 98 MG/DL (60-99); POTASSIUM, SERUM 4.4 MMOL/L (3.5-5.3); SODIUM, SERUM 138 MMOL/L (135-148)
[2016-11-30 04:49] LABS: BUN (BLOOD UREA NITROGEN) 32 MG/DL (6-23)
[2016-12-01 06:35] LABS: BUN (BLOOD UREA NITROGEN) 35 MG/DL (6-23); CALCIUM, SERUM 8.3 MG/DL (8.5-10.4); CHLORIDE, SERUM 101 MMOL/L (96-112); CO2 (CARBON DIOXIDE) 27 MMOL/L (24-34); CREATININE 1.39 MG/DL (0.55-1.02); GFR AFRICAN AMERICAN 44 ML/MIN (>=60); GFR NON AFRICAN AMERICAN 38 ML/MIN (>=60); GLUCOSE, SERUM 111 MG/DL (60-99); POTASSIUM, SERUM 4.2 MMOL/L (3.5-5.3); SODIUM, SERUM 137 MMOL/L (135-148)
[2016-12-02 06:50] LABS: CALCIUM, SERUM 7.9 MG/DL (8.5-10.4); CHLORIDE, SERUM 101 MMOL/L (96-112); CO2 (CARBON DIOXIDE) 27 MMOL/L (24-34); CREATININE 1.17 MG/DL (0.55-1.02); GFR AFRICAN AMERICAN 54 ML/MIN (>=60); GFR NON AFRICAN AMERICAN 47 ML/MIN (>=60); GLUCOSE, SERUM 112 MG/DL (60-99); POTASSIUM, SERUM 4.4 MMOL/L (3.5-5.3); SODIUM, SERUM 137 MMOL/L (135-148)
[2016-12-02 06:51] LABS: BUN (BLOOD UREA NITROGEN) 31 MG/DL (6-23)
[2016-12-02 11:51] LABS: ASCORBIC ACID (UR NOT ORDER) 40 (NEG); BILIRUBIN, URINE NEGATIVE (NEG); KETONE, URINE NEGATIVE (NEG); LEUKOCYTE ESTERASE(NOT OR LARGE (NEG)
[2016-12-02 11:56] LABS: WBC (NOT ORDERED) (RFLEX) > 182 (0-5)
== END 2016-12-02 14:48 | DRG 270 ==
LOC: CVICU 20:16 → 5NO 11-28 18:53
PROVIDERS: Nurse Practitioner Family; Thoracic Surgery (Cardiothoracic Vascular Surgery)
PROC: B246ZZ4 Ultrasonography of Right and Left Heart, Transesophageal (ICD-10-PCS; 2016-11-24)
PROC: 5A1945Z Respiratory Ventilation, 24-96 Consecutive Hours (ICD-10-PCS; 2016-11-25)
PROC: 5A1221Z Performance of Cardiac Output, Continuous (ICD-10-PCS; 2016-11-25)
PROC: 30233K1 Transfusion of Nonautologous Frozen Plasma into Peripheral Vein, Percutaneous Approach (ICD-10-PCS; 2016-11-25)
PROC: 30233N1 Transfusion of Nonautologous Red Blood Cells into Peripheral Vein, Percutaneous Approach (ICD-10-PCS; 2016-11-25)
PROC: 30233R1 Transfusion of Nonautologous Platelets into Peripheral Vein, Percutaneous Approach (ICD-10-PCS; 2016-11-25)
PROC: 30283B1 Transfusion of Nonautologous 4-Factor Prothrombin Complex Concentrate into Vein, Percutaneous Approach (ICD-10-PCS; principal; 2016-11-25 11:15)
PROC: 30283B1 Transfusion of Nonautologous 4-Factor Prothrombin Complex Concentrate into Vein, Percutaneous Approach (ICD-10-PCS; 2016-11-25 11:15)
PROC: 0W9D00Z Drainage of Pericardial Cavity with Drainage Device, Open Approach (ICD-10-PCS; 2016-11-25 11:15)
PROC: 02QL0ZZ Repair Left Ventricle, Open Approach (ICD-10-PCS; 2016-11-25 11:15)
DX: I31.3 Pericardial effusion (noninflammatory) (principal); J95.821 Acute postprocedural respiratory failure; I31.4 Cardiac tamponade; N17.9 Acute kidney failure, unspecified; I50.22 Chronic systolic (congestive) heart failure; I97.51 Accidental puncture and laceration of a circulatory system organ or structure during a circulatory system procedure; I48.2 Chronic atrial fibrillation; D62 Acute posthemorrhagic anemia; I27.2 Other secondary pulmonary hypertension; G25.81 Restless legs syndrome; Q21.1 Atrial septal defect; I31.2 Hemopericardium, not elsewhere classified; D69.6 Thrombocytopenia, unspecified; J44.9 Chronic obstructive pulmonary disease, unspecified; F32.9 Major depressive disorder, single episode, unspecified; E03.9 Hypothyroidism, unspecified; Z87.891 Personal history of nicotine dependence; I25.10 Atherosclerotic heart disease of native coronary artery without angina pectoris; Z90.49 Acquired absence of other specified parts of digestive tract; Y84.0 Cardiac catheterization as the cause of abnormal reaction of the patient, or of later complication, without mention of misadventure at the time of the procedure; Y92.234 Operating room of hospital as the place of occurrence of the external cause; Z79.01 Long term (current) use of anticoagulants
CPT/HCPCS: 31720; 36415; 71010; 71020; 71260; 80048; 80053; 80069; 81001; 82330; 82803; 82805; 82947; 82962; 83605; 83735; 84132; 84295; 85014; 85018; 85025; 85384; 85610; 85730; 86850; 86900; 86901; 86920; 86965; 87077; 87086; 87186; 87641; 93005; 93306; 93312; 93320; 93325; 94002; 94003; 94640; 94660; 94770; 97110-GP; 97116-GP; 97162-GP; A9270-GY; C1768; C1781; C9113; C9132; G8978-CK-GP; G8979-CI-GP; J0690; J1644; J1940; J2250; J2370; J2405; J2795; J3010; P9012; P9016; P9035; P9059; Q9967